=== PATIENT | male | born 1950 | race Two or more races ===

== ENCOUNTER 2016-12-13 13:24 | Inpatient (IN) | payer MEDICARE, MEDICAID ==
[~2016-12-13] VITALS: Ht 160 cm; Wt 68.0 kg
[2016-12-13 14:00] VITALS: BP 174/88
[2016-12-13] MEDS ORDERED: Lidocaine 1% Plain 30 ml INJ ONE (14:00)
[2016-12-13] MEDS ORDERED: Bacitracin Oint UD TOPIC ONE (14:15)
[2016-12-13] MEDS ORDERED: TdaP Vaccine 0.5ml Syr IM ONE (14:15)
--- NOTE | 2016-12-13 14:31 | Diagnostic Imaging Report ---
Indications: Crush injury to left fourth finger, pain Technique: 3 views left hand Findings: Comparison: None There are comminuted fractures of the head of the fourth middle phalanx and base of the fourth distal phalanx, involving both articular surfaces. Fracture fragments are displaced dorsally. The main segment of distal phalanx demonstrates complete bone width dislocation in the palmar direction. The overlying dorsal soft tissues are swollen and irregular with associated linear defect on lateral view extending to the straight fracture margin of the middle phalanx. Irregularity of ulnar aspect third finger tip. No additional fracture, dislocation, foreign body, or other acute changes identified. Multiple interphalangeal joints narrowed with marginal osteophyte formation. IMPRESSION: Open comminuted, displaced fractures of the fourth middle and distal phalanges as described with associated distal interphalangeal joint dislocation. Apparent focal soft tissue laceration third finger tip. No associated fracture or foreign body. Multifocal osteoarthritis
[2016-12-13 15:00] VITALS: BP 156/84
[2016-12-13] MEDS ORDERED: ceFAZolin 1gm/50ml Premix 50 ML IVPB ONE (15:00)
[2016-12-13] MEDS ORDERED: UNOBMED (15:16)
--- NOTE | 2016-12-13 15:56 | Emergency Room Report ---
History of Present Illness General Chief Complaint: Upper Extremity Injury Source: Patient (GUICHO GOLD) Present Illness HPI The patient is a 66-year-old R hand dominant male with a history of hypertension presenting with left fourth digit laceration which he sustained while working today. The patient states that he was using a metal crowbar when the instrument slipped and injured the finger. The patient states he is experiencing a 5/10 dull ache to the area. No radiation of pain. Pain worse with touch. No other complaints. The patient denies numbness or tingling of the extremity. Patient denies prior injury to the finger. Unknown last tetanus vaccination (GUICHO GOLD) Allergies: Coded Allergies: No Known Allergies (Unverified , 12/13/16) Patient History Past Medical History: see triage record Pertinent Family History: none Reviewed Nursing Documentation: PMH: Agreed, PSxH: Agreed (GUICHO GOLD) Nursing Documentation-PMH Past Medical History: No History, Except For Hx Hypertension: Yes (GUICHO GOLD) Review of Systems All Other Systems: negative except mentioned in HPI (GUICHO GOLD.Jay) Physical Exam Vital Signs Date Time Temp Pulse Resp B/P Pulse Ox O2 Delivery O2 Flow Rate FiO2 12/13/16 13:36 98.2 65 18 174/88 99 Room Air Sp02 EP Interpretation: reviewed, normal General Appearance: no apparent distress, alert, GCS 15, non-toxic Head: normocephalic, atraumatic Eyes: bilateral eye PERRL, bilateral eye normal inspection ENT: hearing grossly normal, normal pharynx, no angioedema, normal voice Respiratory: chest non-tender, lungs clear, normal breath sounds, speaking full sentences Cardiovascular #1: regular rate, rhythm, no edema Cardiovascular #2: 2+ carotid (R), 2+ carotid (L), 2+ radial (R), 2+ radial (L) , 2+ dorsalis pedis (R), 2+ dorsalis pedis (L) Musculoskeletal: back normal, normal range of motion, tender - TTP over the distal L 3rd and 4th digits Neurologic: alert, oriented x3, responsive, motor strength/tone normal, sensory intact, speech normal Psychiatric: judgement/insight normal, memory normal, mood/affect normal, no suicidal/homicidal ideation Reflexes: 3+ bicep (R), 3+ bicep (L), 3+ tricep (R), 3+ tricep (L), 3+ knee (R) , 3+ knee (L) Skin: normal turgor, laceration - laceration to L 3rd and 4th fingers. 4th digit dorsal distal phalange has 4cm jagged laceration which extends to bone. Partial nail avulsion. Lymphatic: no adenopathy (GUICHO GOLD P.A.) Procedures Splinting Splinting : Consent: Verbal Location: L hand 4th digit Pre-Made Type: metal Pre-Proc Neuro Vasc Exam: normal Post-Proc Neuro Vasc Exam: normal Patient Tolerated: Well Complications: None (GUICHO GOLD P.A.) Laceration/Wound Repair Laceration/Wound Repair #1: Consent: Verbal Wound Location: upper extremity - 4th digit Wound's Depth, Shape: into muscle, irregular, flap, nail-avulsed Wound Length (cm): 4 Wound Explored: clean Irrigated w/ Saline (ccs): 500 Betadine Prep?: Yes Anesthesia: 1% Lidocaine Volume Anesthetic (ccs): 4 Wound Debrided: minimal Wound Repaired With: sutures Suture Size/Type: 5:0, proline Number of Sutures: 4 Layer Closure?: No Sterile Dressing Applied?: Yes Splint Applied?: Yes Sling Applied?: No Patient Tolerated: Well Complications: None Laceration/Wound Repair #2: Consent: Verbal Wound Location: upper extremity - 3rd digit Wound's Depth, Shape: superficial Wound Length (cm): 3 Wound Explored: clean Irrigated w/ Saline (ccs): 200 Betadine Prep?: Yes Anesthesia: 1% Lidocaine Volume Anesthetic (ccs): 4 Wound Debrided: minimal Wound Repaired With: sutures Suture Size/Type: 5:0, proline Number of Sutures: 4 Layer Closure?: No Sterile Dressing Applied?: Yes Splint Applied?: No Sling Applied?: No Patient Tolerated: Well Complications: None (GUICHO GOLD P.A.) Medical Decision Making PA Attestation Dr. Hull is my supervising physician. Patient management was discussed with my supervising physician (GUICHO GOLD PDidiADidi) Diagnostic Impression: Primary Impression: Open fracture of phalanx of finger of left hand Additional Impression: Laceration of finger of left hand ER Course The patient is a 66-year-old male with a history of hypertension presenting with left fourth digit laceration which he sustained while working today DDx: laceration, fracture, dislocation, contusion, avulsion, tendon injury PE: Vitals show hypertension, otherwise unremarkable. NAD. A&Ox3 L hand: Full AROM of fingers. SILT. 4th digit has a 4cm jagged laceration to dorsal surface through nail. Extends to bone. Minimal bleeding. TTP. 3rd digit has superficial 4cm laceration. No bleeding. Labs: CBC unremarkable. No leukocytosis. CMP shows mild hyperkalemia. PT/PTT WNL Xray: open fracture of the 4th middle and distal phalanges. Displaced Digital blocks were placed to both 3rd and 4th digits using 4mL of lidocaine without epi for each finger. Wounds were copiously irrigated with saline and betadine. The wound of 4th digit was loosely closed using 4 5-0 prolene sutures. Bacitracin applied with splint. 3rd digit was cleaned with NS and betadine. Wound well approximated with 4 5-[address] Hull spoke with Dr. Sweeney regarding admission. Dr. Diaz (surgeon) has spoken with the patient and consent has been signed. Pt NPO and placed on abx Laboratory Tests Test 12/13/16 15:00 White Blood Count 9.0 K/UL (4.8-10.8) Red Blood Count 5.03 M/UL (4.70-6.10) Hemoglobin 14.1 G/DL (14.2-18.0) L Hematocrit 43.7 % (42.0-52.0) Mean Corpuscular Volume 87 FL (80-99) Mean Corpuscular Hemoglobin 28.0 PG (27.0-31.0) Mean Corpuscular Hemoglobin Concent 32.3 G/DL (32.0-36.0) Red Cell Distribution Width 12.1 % (11.6-14.8) Platelet Count 212 K/UL (150-450) Mean Platelet Volume 6.5 FL (6.5-10.1) Neutrophils (%) (Auto) 79.1 % (45.0-75.0) H Lymphocytes (%) (Auto) 11.7 % (20.0-45.0) L Monocytes (%) (Auto) 6.8 % (1.0-10.0) Eosinophils (%) (Auto) 1.1 % (0.0-3.0) Basophils (%) (Auto) 1.3 % (0.0-2.0) Prothrombin Time 10.5 SEC (9.30-11.50) Prothrombin Time INR 1.0 (0.9-1.1) PTT 30 SEC (23-33) Sodium Level 140 mEQ/L (135-145) Potassium Level 5.1 mEQ/L (3.4-4.9) H Chloride Level 105 mEQ/L (98-107) Carbon Dioxide Level 22 mEQ/L (20-30) Anion Gap 13 (5-15) Blood Urea Nitrogen 23 mg/dL (7-23) Creatinine 1.2 mg/dL (0.7-1.2) Estimate Glomerular Filtration Rate > 60 mL/min (>60) Glucose Level 88 mg/dL (74-106) Calcium Level 8.7 mg/dL (8.6-10.2) Total Bilirubin 0.4 mg/dL (0.0-1.2) Aspartate Amino Transferase (AST) 22 U/L (5-40) Alanine Aminotransferase (ALT) 18 U/L (3-41) Alkaline Phosphatase 82 U/L (40-129) Total Protein 6.3 g/dL (6.6-8.7) L Albumin 3.9 g/dL (3.5-5.2) Globulin 2.4 g/dL Albumin/Globulin Ratio 1.6 (1.0-2.7) Lab Results Impression CBC unremarkable. No leukocytosis. CMP shows mild hyperkalemia. PT/PTT WNL (GUICHO GOLD P.A.) ER Course I agree with PA HPI and PE, as well as their assessment/plan. I also concur with PA review of imaging and rhythm strip without additional interpretation. (NICK HULL M.D.) EKG Diagnostic Results EP Interpretation: No acute findings Rate: normal Rhythm: NSR ST Segments: no acute changes PA Scribe Text I'm acting as scribe for my supervising physician. My supervising physician's interpretation of the EKG is NSR. No acute changes (GUICHO GOLD P.A.) Chest X-Ray Diagnostic Results EP Interpretation: Yes Findings: no consolidation, no effusion, no pneumothorax Number of Views: 1 PA Scribe Text I'm acting as scribe for my supervising physician. My supervising physician's interpretation of the CXR are there are no acute findings (GUICHO GOLD) Other X-Ray Diagnostic Results Other X-Ray Diagnostic Results : X-Ray Ordered: L hand Date: Dec 13, 2016 EP Interpretation: Yes Findings: other - open fracture of the 4th middle and distal phalanges. Displaced Number of Views: 3 PA Scribe Text I'm acting as scribe for my supervising physician. My supervising physician's interpretation of the L hand xrays are there is an open fracture as described above (GUICHO GOLD) Last Vital Signs Date Time Temp Pulse Resp B/P Pulse Ox O2 Delivery O2 Flow Rate FiO2 12/13/16 15:00 61 20 156/84 100 Room Air 12/13/16 14:55 98.2 Status: improved (GUICHO GOLD) Disposition: ADMITTED INPATIENT Condition: Stable Referrals: [facility],REFERRING (PCP) GUICHO GOLD Dec 13, 2016 15:56 NICK HULL M.D. Dec 15, 2016 03:48
[2016-12-13] MEDS ORDERED: Miralax 17gm pkt ORAL PRN (16:00)
[2016-12-13] MEDS ORDERED: Morphine Sulfate 2mg/ml Inj IVP PRN (16:00)
[2016-12-13] MEDS ORDERED: Mylanta II UD 30ml ORAL PRN (16:00)
[2016-12-13] MEDS ORDERED: Zolpidem 5mg tab ORAL PRN (16:00)
[2016-12-13] MEDS ORDERED: LORazepam Inj 2mg/ml 1ml IV PRN (16:00)
[2016-12-13 16:10] LABS: PROTHROMBIN TIME 10.5 SEC (9.30-11.50)
[2016-12-13 16:12] LABS: BASOPHILS % (AUTO) 1.3 % (0.0-2.0); EOSINOPHILS % (AUTO) 1.1 % (0.0-3.0); LYMPHOCYTES % (AUTO) 11.7 % (20.0-45.0); MEAN CORPUSCULAR HGB CONC 32.3 G/DL (32.0-36.0); MEAN CORPUSCULAR VOLUME 87 FL (80-99); MEAN PLATELET VOLUME 6.5 FL (6.5-10.1); MONOCYTES % (AUTO) 6.8 % (1.0-10.0); NEUTROPHILS % (AUTO) 79.1 % (45.0-75.0); PLATELET COUNT 212 K/UL (150-450); RED BLOOD COUNT 5.03 M/UL (4.70-6.10); RED CELL DISTRIBUTION WIDTH 12.1 % (11.6-14.8)
[2016-12-13 16:13] LABS: ALANINE AMINOTRANSFERASE 18 U/L (3-41); ALBUMIN/GLOBULIN RATIO 1.6 (1.0-2.7); ANION GAP 13 (5-15); ASPARTATE AMINO TRANSFERASE 22 U/L (5-40); CALCIUM 8.7 mg/dL (8.6-10.2); CARBON DIOXIDE 22 mEQ/L (20-30); CHLORIDE 105 mEQ/L (98-107); CREATININE 1.2 mg/dL (0.7-1.2); GLOMERULAR FILTRATION RATE > 60 mL/min (>60); HEMOLYSIS 4; POTASSIUM 5.1 mEQ/L (3.4-4.9); SODIUM 140 mEQ/L (135-145); TOTAL PROTEIN 6.3 g/dL (6.6-8.7)
--- NOTE | 2016-12-13 16:31 | Diagnostic Imaging Report ---
Indication: Cough Technique: Single portable AP view of the chest. Findings: Comparison: None. Linear densities in both lung bases. Focal chronic appearing deformity versus overlying artifact mid right clavicle. The cardiomediastinal silhouette, pulmonary vasculature, and pleural surfaces are unremarkable. IMPRESSION: Pulmonary bibasal subsegmental atelectasis versus scarring suggestion of old right clavicle fracture. Otherwise negative
[2016-12-13 17:28] VITALS: BP 169/88
[2016-12-13 18:44] VITALS: BP 157/85
[2016-12-13] MEDS ORDERED: AMLODIPINE BES2.5 MG ORAL (18:45)
[2016-12-13 18:46] VITALS: BP 157/85
[2016-12-13] MEDS ORDERED: Vancomycin 1250mg in D5W 275ml IVPB SCH (21:00)
[2016-12-13] MEDS ORDERED: Cefepime HCl 1 GM in D5W 55 ML IV ONE (21:00)
[2016-12-13] MEDS ORDERED: Heparin 5000 units/ml inj SUBQ SCH (21:00)
--- NOTE | 2016-12-13 23:49 | History and Physical ---
History of Present Illness General Date patient seen: Dec 13, 2016 Reason for Hospitalization: Left hand 4rth finger laceration Present Illness HPI The patient is a 66-year-old gentle man with limited past medical history according to him, no admission of diabetes or HTN, presents to [facility] with complaint of fourth digit laceration left hand which he sustained while using a metal crowbar when the instrument slipped and injured the finger. The patient states he is experiencing a 5/10 dull ache to the area. No radiation of pain. Pain worse with touch. No other complaints. The patient denies numbness or tingling of the extremity. Patient denies prior injury to the finger. Unknown last tetanus vaccination. The patients finger wound has been bandaged with sterile dressings and hemodynamic stability achieved. Allergies: Coded Allergies: No Known Allergies (Unverified , 12/13/16) Medication History Scheduled Amlodipine Besylate* (Amlodipine Besylate*), Unknown Dose ORAL DAILY, (Reported) Miscellaneous Medications Unable to Obtain Medications (Unable To Obtain Meds), (Reported) Patient History Healthcare decision maker Resuscitation status Advanced Directive on File Past Medical/Surgical History Past Medical/Surgical History: (1) Cellulitis (2) Injury of upper extremity (3) Open fracture of phalanx of finger of left hand (4) Laceration of finger of left hand Review of Systems Musculoskeletal: Reports: joint pain, muscle pain Skin: Reports: lesions, other - laceration to 4rth metaphalangeal digit Physical Exam General Appearance: no apparent distress HEENT: normocephalic, atraumatic, anicteric, PERRL Neck: non-tender, normal alignment, supple Respiratory/Chest: chest wall non-tender, lungs clear Breasts: no masses Cardiovascular/Chest: normal peripheral pulses, normal rate, regular rhythm, no JVD Abdomen: normal bowel sounds, non tender, soft Genitourinary/Rectal: normal genital exam, normal rectal exam Extremities: other - gross laceration to 4rth metaphalangeal digit Last 24 Hour Vital Signs Date Time Temp Pulse Resp B/P Pulse Ox O2 Delivery O2 Flow Rate FiO2 12/13/16 18:46 98.2 63 20 157/85 100 Room Air 12/13/16 18:44 63 20 157/85 100 Room Air 12/13/16 17:28 60 20 169/88 100 Room Air 12/13/16 15:00 61 20 156/84 100 Room Air 12/13/16 14:55 98.2 12/13/16 14:00 98.2 65 18 174/88 99 Room Air 12/13/16 13:36 98.2 65 18 174/88 99 Room Air Laboratory Tests Test 12/13/16 15:00 White Blood Count 9.0 K/UL (4.8-10.8) Red Blood Count 5.03 M/UL (4.70-6.10) Hemoglobin 14.1 G/DL (14.2-18.0) L Hematocrit 43.7 % (42.0-52.0) Mean Corpuscular Volume 87 FL (80-99) Mean Corpuscular Hemoglobin 28.0 PG (27.0-31.0) Mean Corpuscular Hemoglobin Concent 32.3 G/DL (32.0-36.0) Red Cell Distribution Width 12.1 % (11.6-14.8) Platelet Count 212 K/UL (150-450) Mean Platelet Volume 6.5 FL (6.5-10.1) Neutrophils (%) (Auto) 79.1 % (45.0-75.0) H Lymphocytes (%) (Auto) 11.7 % (20.0-45.0) L Monocytes (%) (Auto) 6.8 % (1.0-10.0) Eosinophils (%) (Auto) 1.1 % (0.0-3.0) Basophils (%) (Auto) 1.3 % (0.0-2.0) Prothrombin Time 10.5 SEC (9.30-11.50) Prothromb Time International Ratio 1.0 (0.9-1.1) Activated Partial Thromboplast Time 30 SEC (23-33) Sodium Level 140 mEQ/L (135-145) Potassium Level 5.1 mEQ/L (3.4-4.9) H Chloride Level 105 mEQ/L (98-107) Carbon Dioxide Level 22 mEQ/L (20-30) Anion Gap 13 (5-15) Blood Urea Nitrogen 23 mg/dL (7-23) Creatinine 1.2 mg/dL (0.7-1.2) Estimat Glomerular Filtration Rate > 60 mL/min (>60) Glucose Level 88 mg/dL (74-106) Calcium Level 8.7 mg/dL (8.6-10.2) Total Bilirubin 0.4 mg/dL (0.0-1.2) Aspartate Amino Transf (AST/SGOT) 22 U/L (5-40) Alanine Aminotransferase (ALT/SGPT) 18 U/L (3-41) Alkaline Phosphatase 82 U/L (40-129) Total Protein 6.3 g/dL (6.6-8.7) L Albumin 3.9 g/dL (3.5-5.2) Globulin 2.4 g/dL Albumin/Globulin Ratio 1.6 (1.0-2.7) Height (Feet): 5 Height (Inches): 3.00 Weight (Pounds): 150 Assessment/Plan Status: stable, progressing Assessment/Plan Assessment Left hand 4th metaphalangeal digit laceration History of HTN History of Cellulitis Plan Antibiotic treatment Wound care Hemodynamic stability achieved SHAE BEE Dec 13, 2016 23:49
[2016-12-14] MEDS ORDERED: Cefepime 1gm in D5W 55ml IVPB SCH (09:00)
--- NOTE | 2016-12-16 12:28 | Discharge Summary ---
Discharge Summary Hospital Course Date of Admission Dec 13, 2016 at 17:34 Date of Discharge Dec 13, 2016 at 21:45 Admitting Diagnosis Lt 4th finger fracture Reason for Hospitalization: open displaced fracture of the 4th middle and distal phalanges RADHA Sethi is a 66 year old male who was admitted on Dec 13, 2016 at 17 :34 for Left 4TH Finger Fracture 66-year-old male , R hand dominant male, with a history of hypertension, presented with left fourth digit jagged laceration and third digit superficial laceration , which he sustained while working the same day when he presented to ED. The patient stated that he was using a metal crowbar when the instrument slipped and injured left fourth and left third finger. The patient reported 5/10 dull ache to the area. No radiation of pain. Pain worse with touch. No other complaints. The patient denied numbness or tingling of the left hand. Patient denied prior injury to the finger. Unknown last tetanus vaccination Consultations dr Diaz surgeon Procedures s/p laceration repair in ED left 4th finger jagged laceration and 3 rd finger superficial laceration Hospital Course 4th digit had a 4cm jagged laceration to dorsal surface through nail. Extended to bone. Minimal bleeding. TTP. 3rd digit hsd superficial 4cm laceration. No bleeding. Xray revealed open displaced fracture of the 4th middle and distal phalanges. in ED by PA: Digital blocks were placed to both 3rd and 4th digits using 4mL of lidocaine without EPI for each finger. Wounds were copiously irrigated with saline and Betadine. The wound of 4th digit was loosely closed using 4 5-0 Prolene sutures. Bacitracin applied with splint. 3rd digit was cleaned with NS and Betadine. Wound well approximated with 4 5-[address] No complications[address] Dr. Diaz (surgeon) has spoken with the patient and consent has been signed. Pt NPO and placed on abx tetanus shot given patient's daughter wants her father to have surgery in another hospital patient sigend AMA Risks and consequences about signing AMA were explained in ED Discharge Condition Upon Discharge: stable Discharge Disposition Patient was signed AMA Discharge Diagnoses: (1) Open fracture of phalanx of finger of left hand (2) Laceration of finger of left hand Claudia Benito NP ([place]anchte[place]) Dec 16, 2016 12:28
--- NOTE | 2016-12-16 19:10 | Cardiology Report ---
APPROVED REPORT EKG Measurement Heart [id number] HI [id number] Sinus rhythm with premature atrial complexes Otherwise normal ECG
== END 2016-12-13 21:45 | disposition left against medical advice (07) | DRG 563 ==
LOC: EMR 14:15 → EDBEDREQ 15:56 → 3E 17:34 → EDBEDREQ 18:22
PROC: 0HQGXZZ Repair Left Hand Skin, External Approach (ICD-10-PCS; principal; 2016-12-13)
DX: S62.625B Displaced fracture of middle phalanx of left ring finger, initial encounter for open fracture (principal); I10 Essential (primary) hypertension; S62.635B Displaced fracture of distal phalanx of left ring finger, initial encounter for open fracture; W22.8XXA Striking against or struck by other objects, initial encounter; Y92.69 Other specified industrial and construction area as the place of occurrence of the external cause; Y99.8 Other external cause status; S61.213A Laceration without foreign body of left middle finger without damage to nail, initial encounter; Z23 Encounter for immunization
CPT/HCPCS: 36415; 71010; 80053; 85025; 85610; 85730; 90471; 90715; 93005